=== PATIENT | female | born 1965 | race Caucasian/White ===

== ENCOUNTER 2019-04-28 19:15 | Inpatient (IN) | payer SELFPAY ==
[~2019-04-28] VITALS: Ht 162.6 cm; Wt 97.7 kg
--- NOTE | 2019-04-28 19:28 | NUR ---
PT BIB DAUGHTER C/O DIZZINESS,HEADACHE AND LLE NUMBNESS S/P SYNCOPE @ 0400 TODAY. PT ALERT AND AWAKE, NO ACUTE DISTRESS NOTED AT THIS TIME. DR ZEE AT BEDSIDE
[2019-04-28 20:09] LABS: BASOPHILS % (AUTO) 0.4 % (0.0-2.0); EOSINOPHILS % (AUTO) 1.1 % (0.0-6.0); HEMATOCRIT 40 % (33-45); HEMOGLOBIN 13.2 g/dL (11.5-14.8); LYMPHOCYTES % (AUTO) 26.9 % (20.0-44.0); MEAN CORPUSCULAR HGB CONC 33 g/dl (31.0-36.0); MEAN CORPUSCULAR VOLUME 87 fL (82-100); MONOCYTES # (AUTO) 0.5 /CMM (0.1-1.30); MONOCYTES % (AUTO) 7.3 % (2.0-12.0); NEUTROPHILS # (AUTO) 4.7 /CMM (1.8-8.9); NEUTROPHILS % (AUTO) 64.3 % (43.0-81.0); PLATELET COUNT (AUTO) 212 /CMM (150-450); RED BLOOD CELL COUNT(AUTO) 4.55 MIL/uL (4.0-5.2); WHITE BLOOD COUNT (AUTO) 7.3 K/uL (4.3-11.0)
[2019-04-28 20:24] LABS: CALCIUM, SERUM 9.6 mg/dL (8.5-10.1); CARBON DIOXIDE 27 mmol/L (21-32); CHLORIDE 103 mmol/L (98-107); CREATININE 0.8 mg/dL (0.6-1.3); GLUCOSE 103 mg/dL (74-106); POTASSIUM 3.8 mmol/L (3.5-5.1); SODIUM SERUM 141 mmol/L (136-145); UREA NITROGEN, BLOOD 19 mg/dL (7-18)
[2019-04-28 20:34] LABS: ALANINE AMINOTRANSFERASE 71 U/L (12-78); ALBUMIN 3.8 g/dL (3.4-5.0); ALKALINE PHOSPHATASE 62 U/L (46-116); ASPARTATE AMINOTRANSFERASE 48 U/L (15-37); BILIRUBIN,DIRECT 0.1 mg/dL (0.0-0.2); BILIRUBIN,TOTAL 0.4 mg/dL (0.2-1.0); TOTAL PROTEIN, SERUM 8.1 g/dL (6.4-8.2)
--- NOTE | 2019-04-28 20:38 | NUR ---
CALLED FOR MS BED
--- NOTE | 2019-04-28 20:55 | NUR ---
RECIEVED BED 208-1 MS
--- NOTE | 2019-04-28 21:04 | NUR ---
REPORT GIVEN TO BHUPENDRA TAM
--- NOTE | 2019-04-28 21:11 | NUR ---
EPIC CHROME CLEANER PAGED FOR PANEL
--- NOTE | 2019-04-28 22:10 | NUR ---
RECIEVED BED 306-2T
--- NOTE | 2019-04-28 22:12 | NUR ---
REPORT GIVEN TO BHUPENDRA PRATT
[2019-04-28 22:30] VITALS: BP 126/76
--- NOTE | 2019-04-28 22:30 | NUR ---
RN NOTES RECEIVED PT. FROM ER WITH DX. OF SYNCOPE, A/OX4, DAUGHTER AT BEDSIDE, [place] SPEAKING, ADMISSION INSTRUCTION WAS RENDERED, SKIN ASSESSMENT DONE, CALL LIGHT WITHIN REACH, [id number], CONTINUE TO MONITOR
[2019-04-28] MEDS ORDERED: IV NS 0.9% 1,000 ML IV PRN (22:35)
[2019-04-28 23:00] VITALS: BP 126/76
[2019-04-28] MEDS ORDERED: MAG HYDROX/AL HYDROX/SIMETH 30 ML UDC PO PRN (23:00)
[2019-04-28] MEDS ORDERED: ZOLPIDEM TARTRATE 5 MG TABLET PO PRN (23:00)
[2019-04-28] MEDS ORDERED: MORPHINE SULFATE INJ 2 MG/ML DISP.SYRIN IV PRN (23:00)
[2019-04-28] MEDS ORDERED: MAGNESIUM HYDROXIDE 30 ML UDC PO PRN (23:00)
[2019-04-28] MEDS ORDERED: ONDANSETRON HCL/PF 4 MG/2 ML VIAL IVP PRN (23:00)
[2019-04-28] MEDS ORDERED: ACETAMINOPHEN 325 MG TABLET PO PRN (23:00)
[2019-04-28] MEDS ORDERED: HYDROCODONE/APAP 5/325MG 1 EACH TABLET PO PRN (23:00)
[2019-04-29 04:00] VITALS: BP_SYST 115; BP_SYST 132; BP_DIAS 74; BP_DIAS 76; BP_DIAS 87
[2019-04-29 06:26] LABS: BASOPHILS % (AUTO) 0.2 % (0.0-2.0); EOSINOPHILS % (AUTO) 1.4 % (0.0-6.0); HEMATOCRIT 38 % (33-45); HEMOGLOBIN 12.6 g/dL (11.5-14.8); LYMPHOCYTES # (AUTO) 2.6 /CMM (0.8-4.8); LYMPHOCYTES % (AUTO) 42.4 % (20.0-44.0); MEAN CORPUSCULAR HGB CONC 33 g/dl (31.0-36.0); MEAN CORPUSCULAR VOLUME 87 fL (82-100); MONOCYTES # (AUTO) 0.5 /CMM (0.1-1.30); MONOCYTES % (AUTO) 7.7 % (2.0-12.0); NEUTROPHILS % (AUTO) 48.3 % (43.0-81.0); PLATELET COUNT (AUTO) 183 /CMM (150-450); RED BLOOD CELL COUNT(AUTO) 4.36 MIL/uL (4.0-5.2); WHITE BLOOD COUNT (AUTO) 6.1 K/uL (4.3-11.0)
--- NOTE | 2019-04-29 06:32 | NUR ---
RN NOTES SLEEPING BUT AROUSABLE, NOT IN DISTRESS, NO PAIN NOTED, BED IN LOCKED POSITION, MAINTAINS SAFETY MEASURES, CALL LIGHT WITHIN REACH, PT. NEEDS ATTENDED. ENDORSED TO DAYSHIFT NURSE
[2019-04-29 06:47] LABS: ALBUMIN 3.4 g/dL (3.4-5.0); BILIRUBIN,TOTAL 0.4 mg/dL (0.2-1.0); CALCIUM, SERUM 9.2 mg/dL (8.5-10.1); CREATININE 0.7 mg/dL (0.6-1.3); MAGNESIUM 1.8 mg/dL (1.8-2.4); PHOSPHORUS 4.4 mg/dL (2.5-4.9); POTASSIUM 3.8 mmol/L (3.5-5.1); TOTAL PROTEIN, SERUM 7.3 g/dL (6.4-8.2)
[2019-04-29 06:50] LABS: THYROID STIMULATING HORMONE 4.38 uIU/mL (0.358-3.74)
[2019-04-29] MEDS ORDERED: PANTOPRAZOLE 40 MG TABLET.DR PO SCH (07:30)
--- NOTE | 2019-04-29 07:35 | NUR ---
RN NOTES RECEIVED PT IN BED RESTING COMFORTABLY IN MODERATE HIGH BACK REST. A/OX4, [place] SPEAKING, NO SIGNS OF DISTRESS NOTED AT THIS TIME. IV FLUIDS ON RIGHT HAND #20 WITH NS @75 ML/HR. INTACT AND PATENT. SAFETY MEASURES IN PLACE, BED IN LOWEST LOCKED POSITION WITH SIDE RAILS UP X2, CALL LIGHT WITHIN REACH, WILL CONTINUE TO MONITOR.
[2019-04-29 07:59] VITALS: BP 124/82
[2019-04-29 08:30] LABS: APPEARANCE,URINE SL CLOUDY (CLEAR); BILIRUBIN,URINE NEGATIVE (NEGATIVE); BLOOD, URINE NEGATIVE Ery/uL (NEGATIVE); COLOR,URINE YELLOW (YELLOW); KETONES,URINE TRACE (NEGATIVE); LEUKOCYTE ESTERASE ,URINE SMALL (NEGATIVE); NITRITE, URINE NEGATIVE (NEGATIVE); PH,URINE 5.5 (5.0-8.0); PROTEIN,URINE NEGATIVE (NEGATIVE); UGLUCOSE NEGATIVE (NEGATIVE); UROBILINOGEN,URINE 0.2 EU/dL (0.2)
[2019-04-29 08:40] LABS: BACTERIA,URINE Rare /HPF (None Seen); RBC,URINE NONE SEEN /HPF (0-2); SQUAMOUS EPITHELIAL CELL,UR Few /HPF (None Seen)
[2019-04-29] MEDS ORDERED: Sulfameth/Trimeth 800/160 Mg PO (10:04)
--- NOTE | 2019-04-29 14:54 | NUR ---
SUPERVISOR ENGINE REPAIR NOTES PATIENT DISCHARGED IN STABLE CONDITION. A/OX 4. ABLE TO MAKE NEEDS KNOWN. V/S TAKEN, STABLE AND RECORDED. PATIENT'S IV REMOVED AND APPLIED PRESSURE DRESSINGS. NAME ARM BAND REMOVED. SKIN IS INTACT. ALL BELONGINGS CHECKED AND SIGNED. HEALTH TEACHINGS/DISCHARGED INSTRUCTIONS GIVEN TO PATIENT AND VERBALIZED UNDERSTANDING. PATIENT LEFT UNIT WITH DAUGHTER AMBULATORY WITH NO SIGNS OF DISTRESS. CHARGE NURSE AWARE OF DISCHARGED.
--- NOTE | 2019-04-29 15:43 | NUR ---
Speaks [place], alert and oriented. She resides with her family in [place]. At baseline, she is ambulatory and independent with adl's. Denies having DME or homehealth. Family are very supportive. Patient discharged home today. Was advised to return to the hospital if symptoms worsen or failed to improved. Addendum: 04/29/19 at 1700 by NOREEN OLMOS RN Amended: Links added.
[2019-04-29] MEDS ORDERED: SULFAMETH/TRIMETH 800/160 MG 1 UDTAB TABLET PO SCH (21:00)
== END 2019-04-29 14:45 | disposition home or self-care (01) | DRG 312 ==
LOC: ER 19:19 → TELE2 21:12 → TELE 22:10 → MED 04-29 08:53
PROVIDERS: ADMIT Nurse Practitioner Acute Care; ATTEND Registered Nurse
DX: R55 Syncope and collapse (principal); N17.0 Acute kidney failure with tubular necrosis; N39.0 Urinary tract infection, site not specified; Z68.35 Body mass index [BMI] 35.0-35.9, adult; E78.5 Hyperlipidemia, unspecified; B96.89 Other specified bacterial agents as the cause of diseases classified elsewhere; G47.33 Obstructive sleep apnea (adult) (pediatric); E66.01 Morbid (severe) obesity due to excess calories; M54.12 Radiculopathy, cervical region; K80.20 Calculus of gallbladder without cholecystitis without obstruction
CPT/HCPCS: 36415; 70450-TC; 71045-TC; 76705-TC; 80048-TC; 80053-TC; 80061-TC; 80076-TC; 81000-TC; 82962-TC; 83735-TC; 84100-TC; 84443-TC; 84484-TC; 85025-TC; 87081-TC; 87086-TC; 93307-TC; G0378; J7030